=== PATIENT | female | born 1980 | race African-American/Black ===

== ENCOUNTER 2017-05-17 10:33 | Emergency (ER) | payer OTHER ==
[~2017-05-17] VITALS: Ht 165.1 cm; Wt 73.5 kg
[2017-05-17 10:36] VITALS: Ht 165.1 cm; Wt 73.5 kg
[2017-05-17] MEDS ORDERED: KENC1 TOP (11:24)
--- NOTE | 2017-05-17 11:42 | ERD ---
ER Documentation Chief Complaint Date/Time DATE: 05/17/17 TIME: 11:36 Chief Complaint Complains of rash HPI This is a 37-year-old female who presents with a rash that she has had for approximately 3 weeks. It first began on her left forearm and then began to spread all over her body. However on her upper extremities she has no lesions past the elbow. She denies any fever. Denies any recent new medications. She states the rashes are very itchy. Denies any swelling of her lips or tongue. She did try an [id number] cream but it did not help. She states that sometimes the lesions go away but then they seem to come back. ROS All systems reviewed and are negative except as per history of present illness. Medications Home Meds Active Scripts Triamcinolone Acetonide (Triamcinolone Acetonide) 0.1% - 15 Gm Cream.gm., 1 APPLIC TOP BID, #1 TUB Prov:HERMINIO HAQUE PA-C 05/17/17 Allergies Allergies: Coded Allergies: No Known Allergy (Unverified , 05/17/17) PMhx/Soc Medical and Surgical Hx: pt denies Medical Hx, pt denies Surgical Hx Hx Alcohol Use: No Hx Substance Use: No Hx Tobacco Use: No Smoking Status: Never smoker FmHx Family History: No diabetes Physical Exam Vitals Vital Signs Date Time Temp Pulse Resp B/P Pulse Ox O2 Delivery O2 Flow Rate FiO2 05/17/17 10:36 99.0 78 20 140/69 98 Physical Exam General: well developed, well nourished, alert, nontoxic, no distress Respiratory: Clear to auscaultation bilaterally, speaks in full sentences, no use of accesory muscles or labored breathing, no rales, ronchi, or wheezing Cardiovascular: RRR, No murmurs Skin: On the upper extremities there are multiple well demarcated hyperpigmented Papules, no surrounding erythema or edema, non-that extend past the forearm. She has similar lesions on the bilateral lower extremities as well as chest wall trunk and scant lesions on the back. Procedures/MDM Patient presents with itchy rash she has had for 3 weeks. Her vital signs are within normal limits other than mildly elevated blood pressure 140/69. Both myself and to my supervising physicians Dr. Berg and Dr. Michel examined the patient and we believe that the best course of action is close follow-up with dermatology and she was given a referral to dermatology as well as prescription for triamcinolone cream. There is no evidence of Rene Petar syndrome or any other life-threatening rash. Recommended this patient follow up with her primary care doctor within 48 hours or return to the emergency room for any worsening of symptoms. However this time I do believe there is suitable for outpatient management. I answered all their questions and they agreed with the plan and were discharged home. Departure Diagnosis: Primary Impression: Rash Condition: Stable Patient Instructions: Self-Care for Skin Rashes Referrals: TOMASA CANAS MD,SHALOM DUNN,EV RINCON,JC TOMPKINS,IVETTE TEMPLETON,VIANCA MELENDREZ,VIANCA Brady Additional Instructions: Call your primary care doctor TOMORROW for an appointment during the next 1-2 days.See the doctor sooner or return here if your condition worsens before your appointment time. Follow-up with dermatology for further testing and evaluation. HERMINIO HAQUE PA-C May 17, 2017 11:42
== END 2017-05-17 11:51 | disposition home or self-care (01) ==
LOC: FTE 10:33
DX: R21 Rash and other nonspecific skin eruption (principal)
CPT/HCPCS: 99283